=== PATIENT | male | born 1950 | race Caucasian/White ===

== ENCOUNTER → 2017-05-16 | Outpatient (CLI) | payer MEDICARE ==
--- NOTE | 2017-05-17 12:47 | PCVCIMAG ---
APPROVED REPORT Study performed: 05/16/2017 16:06:49 EXAM: Comprehensive 2D, Doppler, and color-flow Echocardiogram Patient Location: Echo lab Status: routine Other Information Study Quality: Adequate Indications Dyspnea CAD S/P CABG 2D Dimensions LVEF(%): 67.60 (>50%) IVSd: 8.99 (7-11mm)LVOT Diam: 24.40 (18-24mm) LVDd: 51.74 mm PWd: 7.82 (7-11mm)Ascending Ao: 39.19 (22-36mm) LVDs: 32.16 (25-40mm) Left Atrium: 30.96 (27-40mm) Aortic Root: 27.97 mm LV Single Plane 4CH: 50.02 % LV Single Plane 2CH: 53.69 %[place]'s LVEF: 51.85 % Biplane EF: 51.7 % Volumes Left Atrial Volume (Systole) Single Plane 4CH: 56.25 mLSingle Plane 2CH: 54.52 mL LA ESV Index: 27.00 mL/m2 Aortic Valve AoV Peak Bill.: 1.41 m/s AO Peak Gr.: 7.95 mmHgLVOT Max P.29 mmHg LVOT Max V: 1.04 m/s DONA Vmax: 3.43 cm2 Mitral Valve E/A Ratio: 0.8 MV Decel. Time: 271.71 ms MV E Max Bill.: 0.59 m/s MV A Bill.: 0.71 m/s IVRT: 92.27 ms TDI E/Lateral E': 5.90E/Medial E': 8.43 Medial E' Bill.: 0.07 m/s Lateral E' Bill.: 0.10 m/s Pulmonary Valve PV Peak Bill.: 1.30 m/sPV Peak Gr.: 6.77 mmHg Pulmonary Vein P Vein S: 0.63 m/sP Vein A: 0.26 m/s P Vein D: 0.47 m/sP Vein A Dur.: 87.7 msec P Vein S/D Ratio: 1.34 Tricuspid Valve TR Peak Bill.: 1.99 m/s TR Peak Gr.: 15.86 mmHg TV Vmax: 0.70 m/sPA Pressure: 23.00 mmHg Left Ventricle The left ventricle is normal size. There is normal LV segmental wall motion. There is normal left ventricular wall thickness. Left ventricular systolic function is normal. The left ventricular ejection fraction is within the normal range. LVEF is 60-65%. The left ventricular diastolic function is normal. Right Ventricle The right ventricle is normal size. The right ventricular systolic function is normal. Atria The left atrium size is normal. The right atrium size is normal. Aortic Valve The aortic valve is normal in structure. No aortic regurgitation is present. There is no aortic valvular stenosis. Mitral Valve The mitral valve is normal in structure. There is no mitral valve regurgitation noted. No evidence of mitral valve stenosis. Tricuspid Valve The tricuspid valve is normal in structure. There is trivial tricuspid valve regurgitation noted with a PA pressure [id number].. Pulmonic Valve The pulmonary valve is normal in structure. There is no pulmonic valvular regurgitation. Great Vessels The aortic root is normal in size. The ascending aorta is normal in size. IVC is normal in size and collapses with >50% inspiration Pericardium There is no pericardial effusion. There is no pleural effusion. <Conclusion> The left ventricle is normal size. Left ventricular systolic function is normal. The left ventricular ejection fraction is within the normal range. LVEF is 60-65%. The aortic valve is normal in structure. The mitral valve is normal in structure. The tricuspid valve is normal in structure. There is trivial tricuspid valve regurgitation noted with a PA pressure [id number].. The pulmonary valve is normal in structure. The aortic root is normal in size. The ascending aorta is normal in size.
== END | disposition home or self-care (01) ==
LOC: PCVCIMAG 15:13
PROVIDERS: ATTEND Internal Medicine
DX: I07.1 Rheumatic tricuspid insufficiency (principal); I10 Essential (primary) hypertension; I25.10 Atherosclerotic heart disease of native coronary artery without angina pectoris; Z95.1 Presence of aortocoronary bypass graft
CPT/HCPCS: 93306

== ENCOUNTER → 2017-10-16 | Outpatient (CLI) | payer MEDICARE ==
[~2017-10-16] MED LIST: REGADENOSON 0.4 MG/5 ML DISP.SYRIN. IV ONE
--- NOTE | 2017-10-16 11:03 | PCVCIMAG ---
EXAM: RIGHT SUPERFICIAL VENOUS DUPLEX INDICATION: Leg pain and swelling. FINDINGS: Right leg: No thrombus in the common femoral, main femoral, or popliteal veins. These veins are compressible. Right Great Saphenous Vein: At the saphenofemoral junction the diameter is 7.3 mm, in the mid thigh it is 4.3 mm, and in the calf it is 4.6 mm. There is not significant venous insufficiency/reflux throughout. Venous insufficiency/reflux duration is 0 seconds. Right Small Saphenous Vein: At the saphenopopliteal junction the diameter is 2.7 mm, and in the calf it is 5.1 mm. There is not significant venous insufficiency/reflux throughout. Venous insufficiency/reflux duration is 0 seconds. There is not a cranial extension present. IMPRESSION: Right Great Saphenous Vein: No significant venous insufficiency/reflux is present as noted above. Right Small Saphenous Vein: No significant venous insufficiency/reflux is present as noted above. No evidence of deep venous thrombosis in the right lower extremity. LOC:[place] [id number]
--- NOTE | 2017-10-22 14:04 | PCVCIMAG ---
APPROVED REPORT Exam: Nuclear Stress Test Indication: Dyspnea Patient Location: Out-Patient Stress Nurse: Mona Baxter RN, PIPE [place] Tech:Kim GOSIA Ashley Ht: 5 ft 9 in Wt: 201 lbs BSA: 2.07 m2 HR: 61 bpm BP: 192/91 mmHg BMI: 29.6 Rhythm: NSR Medical History Medical History: HTN, Hyperlipidemia, Age, Former Smoker Medications: Nitro, Toprol XL, Imdur, Atorvastatin, ASA Allergies: Sulfa Previous Cardiac Procedures: CABG Pretest Chest Pain Characteristics: No chest pain Exercise History: Physically active Physical Disabilities: physical limitations Meds Held (24 hrs): Toprol XL, Imdur NM EXAM: Myocardial Perfusion REST/STRESS Imaging Protocol: Rest Tc-99m/Stress Tc-99m 1 day Resting Data Rest SPECT myocardial perfusion imaging was performed in supine position 45 minutes following the intravenous injection of 11.5 mCi of Tc-99m Sestamibi. Time of rest injection: 0845 Date: 10/16/2017 Administration Route: IV Administration Site: Left AC Pharmacologic Stress Pharmacologic stress test was performed by injecting Regadenoson 0.4 mg IV push followed by the intravenous injection of 34.9 mCi of Tc-99m Sestamibi. Time of stress injection: 1005 Date: 10/16/2017 Administration Route: IV Administration Site: Left AC Gated Stress SPECT was performed 45 minutes after stress injection. The images were gated to evaluate regional wall motion and calculate left ventricular ejection fraction. Study Data Post stress, the left ventricular ejection was 74%.. SSS: 0 SRS: 0 SDS: 0 TID = 0.83. Perfusion There is a small area of moderately reduced uptake in the basal and mid segment of the inferior wall which is seen on the stress images as well as the resting images. This area thickens and moves normally and is most consistent with attenuation artifact. Wall Motion Normal left ventricular wall motion. Nuclear Conclusion 1. LOW RISK STUDY Interpreted by: Bertin Ralph MD Electronically Approved: 10/22/2017 14:03:37 Stress Test Details Stress Test: Pharmacologic stress testing performed using 0.4 mg of regadenoson per 5 mL given IV over 10 seconds. Reason for pharmacologic stress test: physical limitation. HR Resting HR: 61 bpmMax Heart Rate (APMHR): 153 bpm Max HR Achieved: 93 bpmTarget HR (85% APMHR): 130 bpm % of APMHR: 60 Recovery HR: 80 bpm BP Resting BP: 192/91 mmHg Max BP: 157/81 mmHg ECG Resting ECG: Sinus Rhythm Stress ECG: Sinus Rhythm Recovery ECG: Sinus Rhythm Recovery Arrhythmia: Clinical Reason for Termination: Completed protocol Stress Symptoms: None Exercise duration: 0 min 55 sec Symptoms resolved with caffeine. Stress ECG Conclusion 1. ADEQUATE RESPONSR TO IV LEXISCAN 2. INADEQUATE HEART RATE RESPONSE FOR ECG DIAGNOSIS <Conclusion> 1. ADEQUATE RESPONSR TO IV LEXISCAN 2. INADEQUATE HEART RATE RESPONSE FOR ECG DIAGNOSIS
== END | disposition home or self-care (01) ==
LOC: PCVCIMAG 07:36
PROVIDERS: ATTEND Internal Medicine
DX: M79.604 Pain in right leg (principal); M79.89 Other specified soft tissue disorders; R06.00 Dyspnea, unspecified; Z95.1 Presence of aortocoronary bypass graft; I10 Essential (primary) hypertension; E78.5 Hyperlipidemia, unspecified; Z87.891 Personal history of nicotine dependence
CPT/HCPCS: 78452; 93017; 93971; A9500; J2785

== ENCOUNTER → 2019-11-23 | Outpatient (CLI) | payer MEDICARE | END | disposition home or self-care (01) | LOC: PCVCCLINIC 10:40 | PROVIDERS: ATTEND Internal Medicine | DX: I25.10 Atherosclerotic heart disease of native coronary artery without angina pectoris (principal); I10 Essential (primary) hypertension; E78.5 Hyperlipidemia, unspecified; Z88.1 Allergy status to other antibiotic agents; Z91.048 Other nonmedicinal substance allergy status; Z79.899 Other long term (current) drug therapy; Z87.891 Personal history of nicotine dependence | CPT/HCPCS: 36415; 80061; 93005; G0463 ==